=== PATIENT | female | born 1940 | race Caucasian/White ===

== ENCOUNTER 2021-08-14 08:59 | Emergency (ER) | payer MEDICARE, BC ==
[2021-08-14 10:44] VITALS: PULSE 94
[2021-08-14] MEDS ORDERED: EPINEPHrine 1 MG/ML SDV IM PRN (11:00)
[2021-08-14] MEDS ORDERED: Acetaminophen 325 MG Tab PO PRN (11:00)
[2021-08-14] MEDS ORDERED: methylPREDNISolone Sodium Succinate 125 MG/2 ML SDV IVPUSH PRN (11:00)
[2021-08-14] MEDS ORDERED: diphenhydrAMINE 50 MG/ML SDV IVPUSH PRN (11:00)
[2021-08-14] MEDS ORDERED: Famotidine 20 MG/2 ML SDV IV PRN (11:00)
[2021-08-14 11:27] VITALS: BP 134/71
[2021-08-14] MEDS ORDERED: Acetaminophen 325 MG Tab PO ONE (11:28)
== END 2021-08-14 13:46 | disposition home or self-care (01) ==
LOC: JP.ED 08:59
DX: U07.1 COVID-19 (principal); J12.82 Pneumonia due to coronavirus disease 2019; M19.90 Unspecified osteoarthritis, unspecified site; Z88.8 Allergy status to other drugs, medicaments and biological substances; Z79.899 Other long term (current) drug therapy; Z79.82 Long term (current) use of aspirin
CPT/HCPCS: 36415; 71045; 80053; 81001; 83615; 84145; 85025; 85379; 87086; 99285; A9270; M0247; Q0247

== ENCOUNTER 2021-08-15 14:48 | Inpatient (IN) | payer MEDICARE, BC ==
[2021-08-15] MEDS ORDERED: REMDESIVIR 200 MG in Sodium Chloride 0.9% 250 ML IV ONE ×2 (16:33→17:20)
[2021-08-15] MEDS ORDERED: cefTRIAXone 1 GM in Sodium Chloride 0.9% 50 ML IV SCH (16:45)
[2021-08-15] MEDS ORDERED: Ondansetron 4 MG/2 ML SDV IV PRN (17:00)
[2021-08-15] MEDS ORDERED: Acetaminophen 325 MG Tab PO PRN (17:00)
[2021-08-15] MEDS ORDERED: Polyethylene Glycol 3350 Powder 17 GM Packet PO PRN (17:00)
[2021-08-15] MEDS ORDERED: 50% Dextrose in Water 50 ML Syringe IV PRN (17:00)
[2021-08-15] MEDS ORDERED: Glucose Gel 15 GM in 37.5 GM Tube PO PRN (17:00)
[2021-08-15] MEDS ORDERED: Sodium Chloride 0.9% 10 ML Syringe FLUSH PRN (17:00)
[2021-08-15] MEDS: Insulin Lispro 100 Unit/ML 3 ML KwikPen SUBCUT SCH ×2 (17:32→22:23)
[2021-08-15] MEDS: Dexamethasone 4 MG/ML SDV IVPUSH SCH (18:14)
[2021-08-15] MEDS: Doxycycline 100 MG in Sodium Chloride 0.9% 100 ML IV SCH (19:55)
[2021-08-15] MEDS: Enoxaparin 40 MG/0.4 ML Syringe SUBCUT SCH (21:14)
[2021-08-15] MEDS: cefTRIAXone 1 GM in Sodium Chloride 0.9% 50 ML IV SCH (21:14)
[2021-08-15] MEDS: Benzocaine/Cetylpyridinium/Menthol Lozenge MUCMEM PRN (22:24)
[2021-08-16] MEDS: Doxycycline 100 MG in Sodium Chloride 0.9% 100 ML IV SCH ×2 (05:50→17:50)
[2021-08-16] MEDS: Insulin Lispro 100 Unit/ML 3 ML KwikPen SUBCUT SCH ×4 (08:03→21:56)
[2021-08-16] MEDS: Levothyroxine 25 MCG Tab PO SCH (08:10)
[2021-08-16] MEDS: Levothyroxine 100 MCG Tab PO SCH (08:10)
[2021-08-16] MEDS: Metoprolol Succinate 50 MG Tab.ER PO SCH (08:11)
[2021-08-16] MEDS: Aspirin 81 MG Tab.Chew PO SCH (08:11)
[2021-08-16] MEDS: Dexamethasone 4 MG/ML SDV IVPUSH SCH (08:12)
[2021-08-16] MEDS: REMDESIVIR 100 MG in Sodium Chloride 0.9% 100 ML IV SCH (16:21)
[2021-08-16] MEDS: cefTRIAXone 1 GM in Sodium Chloride 0.9% 50 ML IV SCH (19:35)
[2021-08-16] MEDS: Enoxaparin 40 MG/0.4 ML Syringe SUBCUT SCH (21:56)
[2021-08-16] MEDS: Codeine/guaiFENesin 10-100 MG/5 ML Syrup 5 ML Cup PO PRN (22:35)
[2021-08-17] MEDS: Codeine/guaiFENesin 10-100 MG/5 ML Syrup 5 ML Cup PO PRN ×3 (04:25→22:03)
[2021-08-17] MEDS: Doxycycline 100 MG in Sodium Chloride 0.9% 100 ML IV SCH ×2 (05:07→18:45)
[2021-08-17] MEDS: Insulin Lispro 100 Unit/ML 3 ML KwikPen SUBCUT SCH ×4 (08:17→22:04)
[2021-08-17] MEDS: Levothyroxine 25 MCG Tab PO SCH (08:38)
[2021-08-17] MEDS: Levothyroxine 100 MCG Tab PO SCH (08:38)
[2021-08-17] MEDS: Dexamethasone 4 MG/ML SDV IVPUSH SCH (08:39)
[2021-08-17] MEDS: Aspirin 81 MG Tab.Chew PO SCH (08:39)
[2021-08-17] MEDS: Metoprolol Succinate 50 MG Tab.ER PO SCH (08:39)
[2021-08-17] MEDS: REMDESIVIR 100 MG in Sodium Chloride 0.9% 100 ML IV SCH (17:00)
[2021-08-17] MEDS: metFORMIN 500 MG Tab PO SCH (17:00)
[2021-08-17] MEDS: cefTRIAXone 1 GM in Sodium Chloride 0.9% 50 ML IV SCH (19:53)
[2021-08-17] MEDS: Enoxaparin 40 MG/0.4 ML Syringe SUBCUT SCH (20:00)
[2021-08-18] MEDS: Doxycycline 100 MG in Sodium Chloride 0.9% 100 ML IV SCH ×2 (07:18→17:47)
[2021-08-18] MEDS: Levothyroxine 100 MCG Tab PO SCH (07:23)
[2021-08-18] MEDS: Levothyroxine 25 MCG Tab PO SCH (07:24)
[2021-08-18] MEDS: Insulin Lispro 100 Unit/ML 3 ML KwikPen SUBCUT SCH ×4 (08:05→21:11)
[2021-08-18] MEDS: Aspirin 81 MG Tab.Chew PO SCH (08:53)
[2021-08-18] MEDS: Dexamethasone 4 MG/ML SDV IVPUSH SCH (08:53)
[2021-08-18] MEDS: metFORMIN 500 MG Tab PO SCH ×2 (08:53→17:47)
[2021-08-18] MEDS: Metoprolol Succinate 50 MG Tab.ER PO SCH (08:54)
[2021-08-18] MEDS: Codeine/guaiFENesin 10-100 MG/5 ML Syrup 5 ML Cup PO PRN ×2 (13:27→20:35)
[2021-08-18] MEDS: REMDESIVIR 100 MG in Sodium Chloride 0.9% 100 ML IV SCH (16:36)
[2021-08-18] MEDS: cefTRIAXone 1 GM in Sodium Chloride 0.9% 50 ML IV SCH (20:32)
[2021-08-18] MEDS: Enoxaparin 40 MG/0.4 ML Syringe SUBCUT SCH (20:35)
[2021-08-18] MEDS: Melatonin 3 MG Tab PO PRN (20:35)
[2021-08-18] MEDS: Benzocaine/Cetylpyridinium/Menthol Lozenge MUCMEM PRN (21:24)
[2021-08-19] MEDS: Doxycycline 100 MG in Sodium Chloride 0.9% 100 ML IV SCH ×2 (05:50→17:45)
[2021-08-19] MEDS: Insulin Lispro 100 Unit/ML 3 ML KwikPen SUBCUT SCH ×4 (08:28→21:11)
[2021-08-19] MEDS: Metoprolol Succinate 50 MG Tab.ER PO SCH (08:31)
[2021-08-19] MEDS: Aspirin 81 MG Tab.Chew PO SCH (08:31)
[2021-08-19] MEDS: Levothyroxine 25 MCG Tab PO SCH (08:32)
[2021-08-19] MEDS: Dexamethasone 4 MG/ML SDV IVPUSH SCH (08:32)
[2021-08-19] MEDS: Levothyroxine 100 MCG Tab PO SCH (08:32)
[2021-08-19] MEDS: metFORMIN 500 MG Tab PO SCH ×2 (08:32→17:45)
[2021-08-19] MEDS: REMDESIVIR 100 MG in Sodium Chloride 0.9% 100 ML IV SCH (16:21)
[2021-08-19] MEDS: cefTRIAXone 1 GM in Sodium Chloride 0.9% 50 ML IV SCH (20:11)
[2021-08-19] MEDS: Melatonin 3 MG Tab PO PRN (20:12)
[2021-08-19] MEDS: Enoxaparin 40 MG/0.4 ML Syringe SUBCUT SCH (20:12)
[2021-08-19] MEDS: Codeine/guaiFENesin 10-100 MG/5 ML Syrup 5 ML Cup PO PRN (21:12)
[2021-08-20] MEDS: Doxycycline 100 MG in Sodium Chloride 0.9% 100 ML IV SCH ×2 (05:25→17:33)
[2021-08-20] MEDS: Levothyroxine 100 MCG Tab PO SCH (07:22)
[2021-08-20] MEDS: Levothyroxine 25 MCG Tab PO SCH (07:22)
[2021-08-20] MEDS: metFORMIN 500 MG Tab PO SCH ×2 (07:27→17:32)
[2021-08-20] MEDS: Insulin Lispro 100 Unit/ML 3 ML KwikPen SUBCUT SCH ×4 (07:29→21:33)
[2021-08-20] MEDS: Aspirin 81 MG Tab.Chew PO SCH (08:26)
[2021-08-20] MEDS: Metoprolol Succinate 50 MG Tab.ER PO SCH (08:26)
[2021-08-20] MEDS: Dexamethasone 4 MG/ML SDV IVPUSH SCH (08:29)
[2021-08-20] MEDS: ZINC PO SCH (11:45)
[2021-08-20] MEDS: CALCIUM PO SCH (11:45)
[2021-08-20] MEDS: MAGNESIUM PO SCH (11:45)
[2021-08-20] MEDS: Multivitamins with Iron/Calcium/Folic Acid/Minerals **PTOM PO SCH (11:46)
[2021-08-20] MEDS: [UNRECOGNIZED DRUG - OTHER] PO SCH (11:46)
[2021-08-20] MEDS: cefTRIAXone 1 GM in Sodium Chloride 0.9% 50 ML IV SCH (20:17)
[2021-08-20] MEDS: Enoxaparin 40 MG/0.4 ML Syringe SUBCUT SCH (21:36)
[2021-08-20] MEDS: Codeine/guaiFENesin 10-100 MG/5 ML Syrup 5 ML Cup PO PRN (21:38)
[2021-08-20] MEDS: Melatonin 3 MG Tab PO PRN (21:38)
[2021-08-21] MEDS: Doxycycline 100 MG in Sodium Chloride 0.9% 100 ML IV SCH ×2 (06:04→18:07)
[2021-08-21] MEDS: Levothyroxine 25 MCG Tab PO SCH (07:56)
[2021-08-21] MEDS: Levothyroxine 100 MCG Tab PO SCH (07:56)
[2021-08-21] MEDS: metFORMIN 500 MG Tab PO SCH ×2 (07:57→18:06)
[2021-08-21] MEDS: Aspirin 81 MG Tab.Chew PO SCH (08:00)
[2021-08-21] MEDS: Dexamethasone 4 MG/ML SDV IVPUSH SCH (08:00)
[2021-08-21] MEDS: Metoprolol Succinate 50 MG Tab.ER PO SCH (08:00)
[2021-08-21] MEDS: ZINC PO SCH (08:01)
[2021-08-21] MEDS: MAGNESIUM PO SCH (08:01)
[2021-08-21] MEDS: Multivitamins with Iron/Calcium/Folic Acid/Minerals **PTOM PO SCH (08:01)
[2021-08-21] MEDS: [UNRECOGNIZED DRUG - OTHER] PO SCH (08:01)
[2021-08-21] MEDS: CALCIUM PO SCH (08:01)
[2021-08-21] MEDS: Insulin Lispro 100 Unit/ML 3 ML KwikPen SUBCUT SCH ×4 (09:15→21:22)
[2021-08-21] MEDS: cefTRIAXone 1 GM in Sodium Chloride 0.9% 50 ML IV SCH (19:37)
[2021-08-21] MEDS: Enoxaparin 40 MG/0.4 ML Syringe SUBCUT SCH (21:51)
[2021-08-21] MEDS: Melatonin 3 MG Tab PO PRN (21:51)
[2021-08-22] MEDS: Levothyroxine 100 MCG Tab PO SCH (08:12)
[2021-08-22] MEDS: Levothyroxine 25 MCG Tab PO SCH (08:12)
[2021-08-22] MEDS: ZINC PO SCH (08:18)
[2021-08-22] MEDS: MAGNESIUM PO SCH (08:18)
[2021-08-22] MEDS: CALCIUM PO SCH (08:18)
[2021-08-22] MEDS: [UNRECOGNIZED DRUG - OTHER] PO SCH (08:19)
[2021-08-22] MEDS: Metoprolol Succinate 50 MG Tab.ER PO SCH (08:19)
[2021-08-22] MEDS: Multivitamins with Iron/Calcium/Folic Acid/Minerals **PTOM PO SCH (08:19)
[2021-08-22] MEDS: metFORMIN 500 MG Tab PO SCH ×2 (08:29→16:44)
[2021-08-22] MEDS: Dexamethasone 4 MG/ML SDV IVPUSH SCH (08:29)
[2021-08-22] MEDS: Aspirin 81 MG Tab.Chew PO SCH (08:29)
[2021-08-22] MEDS: Insulin Lispro 100 Unit/ML 3 ML KwikPen SUBCUT SCH ×4 (10:04→21:27)
[2021-08-22] MEDS ORDERED: Dexamethasone 2 MG Tab PO SCH (16:00)
[2021-08-22] MEDS: Enoxaparin 40 MG/0.4 ML Syringe SUBCUT SCH (21:27)
[2021-08-23] MEDS: Levothyroxine 25 MCG Tab PO SCH (08:34)
[2021-08-23] MEDS: Levothyroxine 100 MCG Tab PO SCH (08:35)
[2021-08-23] MEDS: Insulin Lispro 100 Unit/ML 3 ML KwikPen SUBCUT SCH ×2 (08:37→12:04)
[2021-08-23] MEDS: metFORMIN 500 MG Tab PO SCH (08:39)
[2021-08-23] MEDS: Aspirin 81 MG Tab.Chew PO SCH (08:40)
[2021-08-23] MEDS: CALCIUM PO SCH (08:40)
[2021-08-23] MEDS: MAGNESIUM PO SCH (08:40)
[2021-08-23] MEDS: ZINC PO SCH (08:40)
[2021-08-23] MEDS: [UNRECOGNIZED DRUG - OTHER] PO SCH (08:41)
[2021-08-23] MEDS: Multivitamins with Iron/Calcium/Folic Acid/Minerals **PTOM PO SCH (08:41)
[2021-08-23] MEDS: Metoprolol Succinate 50 MG Tab.ER PO SCH (08:42)
[2021-08-23 10:19] VITALS: BP 111/56; PULSE 71
== END 2021-08-23 14:09 | disposition home or self-care (01) | DRG 177 ==
LOC: JP.ED 14:48 → OBSVTOIN 15:49 → JP.2SS 15:49 → JP.MS 08-22 10:24
PROVIDERS: ADMIT Hospitalist; ATTEND Internal Medicine
PROC: 3E0333Z Introduction of Anti-inflammatory into Peripheral Vein, Percutaneous Approach (ICD-10-PCS; principal; 2021-08-15)
PROC: XW033E5 Introduction of Remdesivir Anti-infective into Peripheral Vein, Percutaneous Approach, New Technology Group 5 (ICD-10-PCS; 2021-08-15)
PROC: 3E0DX3Z Introduction of Anti-inflammatory into Mouth and Pharynx, External Approach (ICD-10-PCS; 2021-08-22)
DX: U07.1 COVID-19 (principal); R09.02 Hypoxemia; R53.1 Weakness; J12.82 Pneumonia due to coronavirus disease 2019; J15.9 Unspecified bacterial pneumonia; J96.01 Acute respiratory failure with hypoxia; F41.9 Anxiety disorder, unspecified; E11.9 Type 2 diabetes mellitus without complications; H54.7 Unspecified visual loss; M19.90 Unspecified osteoarthritis, unspecified site; I10 Essential (primary) hypertension; E03.9 Hypothyroidism, unspecified; Z88.8 Allergy status to other drugs, medicaments and biological substances; Z79.82 Long term (current) use of aspirin; Z79.84 Long term (current) use of oral hypoglycemic drugs; Z79.890 Hormone replacement therapy; Z79.899 Other long term (current) drug therapy; Z98.890 Other specified postprocedural states
CPT/HCPCS: 36415; 71046; 71046-26; 80048; 80053; 82947; 84145; 85025; 85027; 85379; 86140; 87040; 94762; 97110-GP; 97140-GP; 97161-GP; 97530-GP; 97535-GP; 99284; 99285-25; A9270-GY; J0248; J0696; J1100; J1650; J1815; J3490; J7050; J8540

== ENCOUNTER 2022-12-31 07:24 | Day surgery (SDC) | payer MEDICARE, BC ==
[2022-12-31] MEDS ORDERED: Sodium Chloride 0.9% 1,000 ML IV SCH (08:00)
[2022-12-31] MEDS ORDERED: Propofol 200 MG/20 ML SDV ONE ×2 (09:51→10:14)
[2022-12-31] MEDS ORDERED: fentaNYL 50 MCG/ML SDV ONE (09:51)
[2022-12-31 11:13] VITALS: BP 148/80
[2022-12-31 11:57] VITALS: PULSE 65
== END 2022-12-31 12:09 | disposition home or self-care (01) ==
LOC: JP.SDS 07:24
PROVIDERS: ATTEND Surgery
DX: D12.6 Benign neoplasm of colon, unspecified (principal); K63.5 Polyp of colon; K57.30 Diverticulosis of large intestine without perforation or abscess without bleeding; I10 Essential (primary) hypertension; I25.2 Old myocardial infarction; E10.9 Type 1 diabetes mellitus without complications; E03.9 Hypothyroidism, unspecified; Z88.8 Allergy status to other drugs, medicaments and biological substances
CPT/HCPCS: 45380; 45381; 82947; J2704; J3010; J7030; 88305

== ENCOUNTER 2023-07-29 06:53 | Day surgery (SDC) | payer MEDICARE, BC ==
[2023-07-29] MEDS ORDERED: Propofol 200 MG/20 ML SDV ONE (07:23)
[2023-07-29] MEDS ORDERED: fentaNYL 50 MCG/ML SDV ONE (07:23)
[2023-07-29] MEDS ORDERED: Sodium Chloride 0.9% 1,000 ML IV SCH (07:30)
[2023-07-29 10:43] VITALS: BP 134/74; PULSE 74
== END 2023-07-29 10:35 | disposition home or self-care (01) ==
LOC: JP.SDS 06:53
PROVIDERS: ATTEND Surgery
DX: Z12.11 Encounter for screening for malignant neoplasm of colon (principal); K57.30 Diverticulosis of large intestine without perforation or abscess without bleeding; I10 Essential (primary) hypertension; E11.9 Type 2 diabetes mellitus without complications; Z88.8 Allergy status to other drugs, medicaments and biological substances
CPT/HCPCS: G0121; J2704; J3010; J7030